=== PATIENT | female | born 1995 | race Caucasian/White ===

== ENCOUNTER 2021-07-19 09:27 | Outpatient (REF) | payer OTHER, SELFPAY ==
[2021-07-19 12:16] LABS: Binax Internal Control QC Valid; Binax Now Covid-19 Ag Negative (Negative)
== END 2021-07-19 09:28 | disposition home or self-care (01) ==
LOC: HO.LAB 09:27
PROVIDERS: Visit Provider Internal Medicine
DX: Z20.822 Contact with and (suspected) exposure to COVID-19 (principal)
CPT/HCPCS: 36415; C9803

== ENCOUNTER → 2024-08-24 15:14 | Outpatient (BNVA) | payer SELFPAY | PROVIDERS: Visit Provider Registered Nurse | DX: Z02.1 Encounter for pre-employment examination (principal) ==

== ENCOUNTER 2025-06-14 11:10 | Outpatient (AMB) | payer OTHER, SELFPAY ==
[2025-06-14 11:17] VITALS: BP 150/84; PULSE 76; O2SAT 99; BMI 32.7
--- NOTE | 2025-06-14 11:17 | HO.NEPHOV_ITS ---
Vital Signs 06/14/25 11:17 Height 4 ft 9 in Weight 151 lb BMI 32.7 BP 150/84 H Blood Pressure Location Lt brachial Position Sitting Pulse 76 Pulse Source Pulse Oximeter Pulse Oximetry (%) 99 Oxygen Delivery Method Room Air Intake Visit Reasons: ENP: Hypertension [employer] Pinner Required: No Accompanied by: Self / Same As Patient Allergies Iodinated Contrast Media Allergy (Unknown, Verified 06/14/25 11:20) Anaphylaxis Seasonal Allergies Allergy (Unknown, Verified 06/14/25 11:20) Runny Nose Medication List - Last Reconciled 06/14/25 by Harvey Bowman MD labetalol 100 mg PO BID HPI Comments Details: The patient is a 29 year old individual presenting for evaluation and management of chronic hypertension. The patient has a history of high blood pressure for approximately four to five years, starting around age 24. A past trial of amlodipine did not regulate the patient's blood pressure, and the patient is currently taking labetalol. The patient is currently 10 weeks . This is the patient's third ; the first ended in a miscarriage at age 27 due to Rh incompatibility, and the second resulted in a child who is now one year old. During the previous successful , the patient took labetalol and blood pressure was well-controlled, but it became elevated again after delivery. The patient reports a history of multiple painful kidney stones since the age of 8, all of which were passed without intervention. No work up was undertaken, The patient's mother also has a history of kidney stones. Associated symptoms include chronic nocturia, requiring urination three to four times nightly, and frequent headaches that resolve with coffee. The patient has a history of alternating constipation and diarrhea, for which a colonoscopy was normal with a suggestion of dairy intolerance. The patient denies smoking or alcohol use and reports being mindful of salt intake. Family history is positive for hypertension in both parents. [facility] Medical History (Updated 06/14/25 @ 11:32 by Harvey Bowman MD) Asthma Elevated blood pressure reading Bulimia nervosa, mild Depression Primary insomnia Elevated alkaline phosphatase level Chronic hypertension Family History (Updated 06/14/25 @ 11:19 by JENNIFER Perez) Father Hypertension Mother Hypertension Review of Systems Const Denies fever(s) and Denies weight loss Card Denies chest pain Resp Denies cough and Denies hemoptysis GI Denies abdominal pain, Denies diarrhea and Denies nausea Musc Denies back pain Neuro Denies focal weakness Physical Exam Vital Signs: Last Vital Signs Pulse 76 06/14/25 11:17 BP 150/84 H 06/14/25 11:17 Pulse Ox 99 06/14/25 11:17 Oxygen Delivery Method Room Air 06/14/25 11:17 BMI result Body Mass Index 32.7 Comfortable Short stature Neck supple no JVD. Lungs entry equal no rales. Heart S1-S2 heard no gallop or rub. Abdomen soft nontender. Neuro alert awake oriented. No asterixis. Extremities no edema. Results Reviewed Nephrology Results: Hgb, (12.0-16.0) 15.4 g/dL 06/24/19 WBC, (4.8-10.8) 11.3 X10*3/uL H 06/24/19 Plt Count, (160-400) 308 X10*3/uL 06/24/19 Sodium, (135-145) 139 MMOL/L 06/24/19 Potassium, (3.3-5.1) 4.2 MMOL/L 06/24/19 Chloride, (96-108) 105 MMOL/L 06/24/19 BUN, (9-16) 7 MG/DL L 06/24/19 Creatinine, (0.5-1.4) 0.64 MG/DL 06/24/19 Urine Protein, (NEG - TRACE) NEG 06/23/19 Assessment & Plan Assessment & Plan (1) HTN (hypertension): Code(s): I10 - Essential (primary) hypertension Category: Medical (2) Nephrolithiasis: Code(s): N20.0 - Calculus of kidney Category: Medical Plan 1. Hypertension - The patient has early-onset hypertension, currently uncontrolled, which requires further investigation for a secondary cause, especially given the history of recurrent kidney stones. - The current medication, labetalol, will be continued without changes at this time. - A 24-hour ambulatory blood pressure monitoring will be ordered to obtain a more accurate assessment of blood pressure control. - Adjustments to medication will be considered based on the results of the 24- hour monitoring. Will check Aldosterone and Renin - The patient was advised to continue a low-salt diet. - A follow-up is scheduled in one week to review test results. 2. Recurrent Nephrolithiasis - The patient has a long-standing history of recurrent kidney stones since childhood, which may be contributing to the hypertension. - A renal ultrasound will be performed to assess the kidneys. - A 24-hour urine collection will be done to analyze for sodium, calcium, citrate, and oxalic acid to investigate the etiology of stone formation. - The patient was advised to maintain adequate fluid intake. 3. - The patient is at 10 weeks of gestation, which necessitates prompt evaluation and management of hypertension to ensure maternal and well-being. - The diagnostic workup and medication adjustments will be expedited due to the . - The patient will continue labetalol, a medication considered safe during . Patient Instructions - Continue taking your current blood pressure medication, labetalol, as prescribed. - Continue to eat a diet with less salt. - Drink lots of fluids. - You will need to wear a blood pressure cuff for 24 hours. Just go about your normal day, and it will check your blood pressure automatically throughout the day and night. - 24 hr urine collection for stone studies - An ultrasound of your kidneys will be scheduled. - Please follow up in one week to review your test results. Orders: Orders US renal BI Today I10 - Essential (primary) hypertension, N20.0 - Calculus of kidney Calcium, 24 Hr Ur Today I10 - Essential (primary) hypertension, N20.0 - Calculus of kidney Citric Acid 24hr Urine Today I10 - Essential (primary) hypertension, N20.0 - Calculus of kidney UA and rflx microscopic Today I10 - Essential (primary) hypertension, N20.0 - Calculus of kidney Comprehensive Met. Panel Today I10 - Essential (primary) hypertension, N20.0 - Calculus of kidney AMB 24 HR B/P Monitor PLACEMENT Today I10 - Essential (primary) hypertension Sodium, 24Hr Urine Group Today I10 - Essential (primary) hypertension, N20.0 - Calculus of kidney Creatinine, 24 Hr Group Today I10 - Essential (primary) hypertension, N20.0 - Calculus of kidney Oxalate, 24 Hr Today I10 - Essential (primary) hypertension, N20.0 - Calculus of kidney Uric Acid, 24Hr Urine Group Today I10 - Essential (primary) hypertension, N20.0 - Calculus of kidney Aldosterone Today I10 - Essential (primary) hypertension, N20.0 - Calculus of kidney Renin Today I10 - Essential (primary) hypertension, N20.0 - Calculus of kidney Coding Level of Care Code New Pt Level 4 (72019) Diagnoses HTN (hypertension) I10 Nephrolithiasis N20.0
== END 2025-06-14 11:39 | disposition home or self-care (01) ==
LOC: HO.HKA 11:11
PROVIDERS: PCP Internal Medicine; Visit Provider Internal Medicine Hypertension Specialist
DX: I10 Essential (primary) hypertension (principal); N20.0 Calculus of kidney
CPT/HCPCS: 99204

== ENCOUNTER 2025-06-18 07:16 | Outpatient (REF) | payer OTHER, SELFPAY ==
--- OUTSIDE RECORDS SUMMARY | 2025-06-18 07:19 | XMS_ITS | Clinical Summary ---
Author Organization [facility] Address [address] [address] Phone Care Team Providers Care [employer] 8 Teacher Name Role Phone Clarissa Cordoba MD Primary Care Provider [phone] Allergies Active Allergy Reactions Criticality Noted Date Comments Iodinated Contrast Media Anaphylaxis High 01/27/2017 Hair dye Medications aspirin 81 MG EC tablet Take 162 mg by mouth. 4 Active sertraline (ZOLOFT) 50 MG tablet Take 50 mg by mouth. 5 Active labetaloL (TRANDATE) 100 MG tablet Take 100 mg by mouth 2 (two) times a day. 4 Active rho,D, immune globulin (HYPERRHO S/D) 1,500 unit (300 mcg) Syrg IM injection syringe Inject 1,500 Units into the muscle. 4 Active rho,D, immune globulin (RHOGAM) 1,500 unit (300 mcg) Syrg IM injection syringe Inject 1,500 Units into the muscle Once. - Intramuscular Active Active Problems No known active problems Immunizations Immunization Administration Dates Next Due DTP 05/13/1996,03/13/1996 DTaP 03/20/2001,04/12/1997,07/13/1996 UTnD-Ezx-ENU 04/12/1997, 6,05/13/1996,03/13 Dtap, 5 Pertussis Antigens 03/20/2001,04/12/1997 ,07/13/1996 HPV,quadrivalent 02/15/2009,06/22/2008, 8 Hepatitis A, ped/adol, 2 dose 09/07/2014, 011 Hepatitis B 04/26/2015, 7,02/11/1996,12/11 Hib,PRP-T 04/12/1997, 6,05/13/1996,03/13 INFLUENZA, SPLIT VIRUS, TRIV ALENT W/ PRESERVATIVE IM 04/01/2012 IPV 04/12/2001, 6,05/13/1996,03/13 Influenza Quadrivalent Prese rvative Free IM 03/13/2016,04/26/2015,08/04/2013 Influenza Quadrivalent w/ Pr eservative IM 09/07/2014 Influenza Split (Incl. Purif ied Surface Antigen) 02/27/2011,03/12/2010 MMR 02/27/2000,02/10/1997 Meningococcal MCV4P 03/13/2016,01/27/2008 Polio - OPV 07/13/1996,05/13/1996,03/13/1996 Td (adult) 5 Lf Tetanus Toxo id, PF, Adsorbed 08/23/2016 Td (adult),2 Lf Tetanus Toxo id, PF, Adsorbed 02/21/2021,08/23/2016 Tdap 01/27/2008 Varicella 01/27/2008,04/11/1999 Social History Tobacco Use Types Packs/Day Years Used Date Smoking Tobacco: Never Smokeless Tobacco: Never Tobacco Cessation:Counseling Given: Not Answered Education Answer Date Recorded Are you interested in more education? Not on mary e 02/24/2023 Are you concerned about learning? Not on file 02/24/2023 No 02/24/2023 No 02/24/2023 Digital Access Answer Date Recorded No 02/24/2023 No 02/24/2023 Reliable internet access at home? Not on file 02/24/2023 Device with a working camera? Not on file Comments Unknown Sex and Gender Information Value Date Recorded Sex Assigned at Not on file Legal Sex Female 8:02 AM EDT Gender Identity Not on file Sexual Orientation Not on file Last Filed Vital Signs Vital Sign Reading Time Taken Comments Blood Pressure 139/84 01/04/2025 9:25 AM EDT Pulse 78 01/04/2025 9:25 AM EDT Temperature 36.2 C (97.1 F) 01/04/2025 9:25 AM EDT Respiratory Rate 19 01/04/2025 9:25 AM EDT Oxygen Saturation 100% 01/04/2025 9:25 AM EDT Inhaled Oxygen Concentration - - Weight 65.8 kg (145 lb) 02/24/2023 8:13 AM EDT Height - - Body Mass Index - - Plan of Treatment Health Maintenance Due Date Last Done Comments DEPRESSION SCREENING 2007 HEPATITIS C SCREENING 12/06/2013 HIV ONE-TIME SCREENING (18-65 YEARS) 12/06/2013 INFLUENZA VACCINE (#1) 2025 6, 04/26/2015, 09/07/2014, Additional history exists COVID-19 VACCINE (2024- season) 2025 12/14/2020, 11/16/2020 PAP SMEAR 08/29/2026 08/29/2023 Adult Td,Tdap Booster 02/05/2034 02/06/2024 , 02/21/2021, 08/23/2016, Additional history exists HIB VACCINES Completed 04/12/1997, 03/16, 07/13/1996, Additional history exists HEPATITIS A VACCINES Completed 09/07/2014, 02/28/20 11 MENINGOCOCCAL VACCINES (ACWY) Aged Out 03/13/2016, 01/27/2008 No longer eligibl e based on patient's age to complete this topic SMOKING STATUS SCREENING (Once After 26 Yrs) Completed 12/14/2024 MENINGOCOCCAL VACCINES (B) Aged Out N o longer eligible based on patient's age to complete this topic PNEUMOCOCCAL VACCINES (0-49 years) Aged Out No longer eligible based on patient's age to complete this topic Medical Devices Not on file Insurance HMO O O O [facility] [place] [address] [place] [address] HMO Care Teams Grades 7 And 8 Teacher Relationship Specialty Start Date End Date Clarissa Cordoba MD [address] [place] [phone] PCP - General Internal Medicine 12/14/24 Additional Source Comments The information contained in this document represents components of the legal health record. It is not the complete legal health record.[facility]
--- OUTSIDE RECORDS SUMMARY | 2025-06-18 07:19 | XMS_ITS | Clinical Summary ---
Author Organization [facility] Address [address] [place] [address] Care Team Providers Care Machine Builder Name Role Phone Clarissa Cordoba MD Primary Care Provider [phone] Allergies Active Allergy Reactions Criticality Noted Date Comments Iodinated Contrast Media Anaphylaxis High 01/27/2017 Hair dye Other Runny nose 01/27/2017 Seasonal Allergies Medications albuterol HFA (PROAIR HFA ; PROVENTIL HFA ; VENTOLIN HFA) 90 mcg/actuation inhaler Inhale 2 Puffs into the lungs every 4 hours as needed for Cough or Wheezing. 3 Active fluticasone HFA (FLOVENT HFA) 110 mcg/actuation inhaler Inhale 1 Puff into the lungs 2 times daily. 3 Active NON FORMULARY PRENAT [id number]-[id number] FOL-FA OR Take by mouth daily. - Oral Active rho,D, immune globulin (WINRHO) 1,500 unit (300 mcg) syringe injection Inject 1,500 Units into the muscle Once. - Intramuscular Active labetaloL (NORMODYNE) 100 mg tablet Take 1 tablet (100 mg total) by mouth 2 (two) times a day. 60 each 5 5 04/14/20 26 Active vit,roshni 76/iron/folic (PNV 29-1 ORAL) Take 1 tablet by mouth 1 (one) time each day. Active Active Problems Problem Noted Date Diagnosed Date Environmental allergies 05/31/2024 Type O blood, Rh negative 05/31/2024 Encounter for supervision of normal first in third trimester 05/31/2024 Overview (05/31/2024): 1. [place] site: [address] 2. Delivery site: [facility] 3. Mobile Mommas: 4. Dating criteria: LMP only 5. Blood type: O- 6. Genetic screening: Low-risk male; [id number] neg 6. GBS: Date: 7. FOB name: Zachery 8. Plans A. Epidural or other pain management - B. Labor support identified - C. Tdap - Date:, Flu - Date: D. Breast or Bottle feed: E. Baby's name - F. Circumcision - 9. Hospital Course: Obesity affecting 10/09/2023 Overview (04/20/2024): BMI- 32.46 HgbA1C and 1 hour GTT at initial labs ASA 162mg at 12 weeks until delivery Detailed anatomy ultrasound Repeat GTT 24-28 weeks if early is normal BMI of 50 by 28wks transfer to [facility] [place] [place] DVT prophylaxis- Lovenox if CS and BMI >35 Chronic hypertension 09/10/2023 Overview (04/20/2024): Baseline (<20 weeks) CBC, AST, ALT, creatinine and P/C ratio - all WNL< tP:C 0.19 Start ASA 162mg at 12 weeks until delivery If no medication required, delivery 38-39 weeks Single growth u/s at 32 weeks Start meds for SBP>140 or DBP> 90 BP goal SBP: <140 and DBP: <90 If on medication or other comorbidities: Serial growth u/s at 28 weeks Weekly NST at 32 weeks Twice weekly testing at 36 weeks Deliver 37-39 weeks Chronic diarrhea 12/27/2020 Overview (04/20/2024): Normal CNSP 12/2020 biopsy pending Elevated alkaline phosphatase level 03/03/2020 Overview (04/20/2024): Normal abdominal ultrasound Primary insomnia 08/26/2018 Depression 10/24/2017 Bulimia nervosa, mild (CMS/HCC V28) 09/03/2017 Overview (04/20/2024): Referred to nutrition and behavioral health Elevated blood pressure reading 09/03/2017 Overview (04/20/2024): Last Assessment & Plan: Patient instructed to f/u with PCP, referral placed. Asthma 01/20/2017 Estimated Date of Delivery Comme nts Yes 01/14/2026 Encounters Date Type Department Care Team Description 05/26/2025 10:00 AM EST Clinical Support Obstetrics and Gynecology [address] [phone] Missed menses (Primary Dx) from Last 3 Months Immunizations Immunization Administration Dates Next Due DTP 05/13/1996,03/13/1996 DTaP (Infanrix) 6wks to less than 7yo 03/20/2001 ,04/12/1997,07/13/1996 DTaP 5 pertussis antigens, D iptheria Tetanus acellular pertussis (Daptacel) 6wks to less than 7yo 03/20/2001,04/12/1997,07/13/1996 [id number]-DIE (Pentacel) 2mo to less than 5yo 04/12/1997,07/13/1996,05/13/1996,03/13 HPV, Quadrivalent 02/15/2009,06/22/2008,01/27/20 08 Hepatitis A Pediatric (Havri x; Vaqta) 12mo to less than 19yo 09/07/2014,02/27/2011 Hepatitis B Pediatric (Enger ix B; Recombivax HB) to less than 20 yo 04/26/2015,02/10/1997,02/11/1996,12/11 HiB PRP-T conjugate (Acthib, Hiberix) 6wks and older 04/12/1997,07/13/1996,05/13/1996,03/13 IPV Inactivated polio (Ipol) 6wks and older 04/12/2001,07/13/1996,05/13/1996,03/13 Influenza Quadrivalent, 0.5m l, preservative free (Fluarix; FluLaval; Fluzone) ages 6mo and older (Afluria) 3yo and older 03/13/2016,04/26/2015,08/04/2013 Influenza Quadrivalent, with preservative (Fluzone; Afluria) 6mo and older 09/07/2014 Influenza Split 02/27/2011,03/12/2010 Influenza trivalent, with pr eservative (Fluzone; Afluria) 6mo and older 04/01/2012,02/27/2011,03/12/2010 MMR, measles mumps and rubel la Live (Priorix; M-M-R II) 12mo and older 02/27/2000,02/10/1997 Meningococcal MCV4P 03/13/2016,01/27/2008 OPV 07/13/1996,05/13/1996,03/13/1996 Td Tetanus diptheria (Tdvax) 7yo and older 02/21/2021,08/23/2016 Td Tetanus diptheria, preser vative free (Tenivac) 7yo and older 08/23/2016 Tdap Tetanus diptheria acell ular pertussis (Boostrix; Adacel) 7yo and older 02/06/2024,01/27/2008 Varicella live (Varivax) 12m o and older 04/14/2024,01/27/2008,04/11/1999 Surgical History Surgery Date Site/Laterality Comments COLONOSCOPY 12/26/2020 PROCEDURE: HISTORICAL COLONOSCOPY; COMMENT: Dr. Kwan francois. Random colonic biopsies also normal. WISDOM TOOTH EXTRACTION PROCEDURE: HISTORICAL WISDOM TEETH EXTRACTION Medical History Medical History Date Comments Asthma 01/20/2017 DX:Asthma Environmental allergies 01/20/2017 DX:Envir onmental allergies Bulimia nervosa, mild (CMS/[facility] V28) 09/03/2017 DX:Bulimia nervosa, mild Primary insomnia 08/26/2018 DX:Primary inso mnia Chronic hypertension DX:Chronic hypertension Kidney stones DX:Kidney stones Family History Medical History Relation Name Comments Breast cancer Aunt Paternal and bone cance r; maternal ADD / ADHD Father Hypertension Father Nephrolithiasis Maternal Grandfather Other: gout Maternal Grandfather Other: heart disease Maternal Grandmother Stroke Maternal Grandmother Hypertension Mother Ulcerative colitis Mother Breast cancer Mother's side 1 Cousin Multiple myeloma Mother's side 2 Great aunt Other: heart disease Paternal Grandfather Heart attack Paternal Grandmother Hyperlipidemia Paternal Grandmother Hypertension Paternal Grandmother Other: heart disease Paternal Grandmother Asthma Sister Colon cancer Neg Hx Ovarian cancer Neg Hx Pancreatic cancer Neg Hx Prostate cancer Neg Hx Uterine cancer Neg Hx Relation Name Status Comments Aunt Paternal Father Alive Maternal Grandfather Alive Maternal Grandmother Mother Alive Mother's side 1 Cousin Alive Mother's side 2 Great aunt Alive Paternal Grandfather Alive Paternal Grandmother Alive Sister Alive Social History Tobacco Use Types Packs/Day Years Used Date Smoking Tobacco: Never Smokeless Tobacco: Never Tobacco Cessation:Counseling Given: Not Answered Alcohol Use Standard Drinks/Week Comments Not Currently 0 (1 standard drink = 0.6 oz pur e alcohol) Estimated Date of Delivery Comme nts Yes 01/14/2026 Sex and Gender Information Value Date Recorded Sex Assigned at Not on file Legal Sex Female 5:06 PM EST Gender Identity Not on file Sexual Orientation Not on file Obstetrics History * This document contains information received from the source organization and may not represent a complete record from that organization. Para Term AB IAB SAB Ectopic Multiple Livin g Live Births 3 1 1 0 0 0 1 1 Date Outcome GA Total Labor Labor/2nd/3rd Weight Sex Type Anes PTL Teena A1 A5 Name Clin 2022 2023 Term 37w 4d M Vag-S pont Living Current Last Filed Vital Signs Vital Sign Reading Time Taken Comments Blood Pressure 130/95 05/26/2025 10:05 AM EST Pulse 91 02/15/2025 12:59 PM EDT Temperature 36.7 C (98 F) 02/15/2025 12:59 PM EDT Respiratory Rate 14 07/13/2024 10:32 AM EST Oxygen Saturation 98% 02/15/2025 12:59 PM EDT Inhaled Oxygen Concentration - - Weight 68.9 kg (152 lb) 05/26/2025 10:05 AM EST Height 144.8 cm (4' 9 ) 05/26/2025 10:05 AM EST Body Mass Index 32.89 05/26/2025 10:05 AM EST Plan of Treatment Upcoming Encounters Date Type Department Care Team (Late st Contact Info) Description 06/22/2025 2:00 PM EST Office Visit Internal Medicine - [address] [place], [place] [phone] Clarissa Cordoba MD [address] [place], [place] 06/23/2025 10:00 AM EST Clinical Support Obstetrics and Gynecology - [address] [phone] 07/06/2025 10:30 AM EST Initial Obstetrics and Gynecology - [address] [phone] Amol Hawkins, [facility] [address] [place] [address] Health Maintenance Due Date Last Done Comments Pneumococcal Vaccine: Pediatrics (0 to 5 Years) and At-Risk Patients (6 to 49 Years) (1 of 2 - PCV) 12/06/2014 Social Influencers of Health Screening 06/22/2022 COVID-19 Vaccine (3 - season) 2025 12/14/2020, 11/16/2020 Influenza Vaccine (#1) 2025 6, 04/26/2015, 09/07/2014, Additional history exists Hypertension/CHF/CAD Annual BMP Blood Test 01/19/2026 01/19/2025, 02/06/2024, 02/06/2024 Cervical Cancer Screening: Pap Smear 08/29/2026 08/29/2023, 08/29/2023, 08/29/2023, Additional history exists Cholesterol Screening (Lipid Panel) 01/19/2030 01/19/2025, 02/06/2024, 02/06/2024 DTaP,Tdap,and Td Vaccines (11 - Td or Tdap) 02/05/2034 02/06/2024, 02/21/2021, 08/23/2016, Additional history exists HIB Vaccines Completed 04/12/1997, 03/16, 07/13/1996, Additional history exists IPV Vaccines Completed 04/12/2001, 03/16, 07/13/1996, Additional history exists HPV Vaccines Completed 02/15/2009, 06/13, 01/27/2008 Hepatitis A Vaccines Completed 09/07/2014, 02/28/20 11 Hepatitis B Vaccines Completed 04/26/2015, 02/10/1997, 02/11/1996, Additional history exists Meningococcal ACWY Vaccine Aged Out 03/13/2016, No longer eligible based on patient's age to complete this topic HIV Screening Completed 10/10/2023 Hepatitis C Screening Completed 10/10/2023 Depression Screening Completed 01/17/2025 Meningococcal B Vaccine Aged Out No l onger eligible based on patient's age to complete this topic RSV Immunization Adult Patients (No Doses Required) Completed RSV Immunization Patients Under 20 months Aged Out No longer eligible based on patient's age to complete this topic Procedures Procedure Name Priority Date/Time Associated Diagnosis Comments POC , URINE DIAGNOSTIC Routine 05/26/2025 10:31 AM EST Missed menses COMPREHENSIVE METABOLIC PANEL Routine 01/19/2025 9:25 AM EDT Obesity (BMI 30.0-34.9) Hypertension, uncontrolled LIPID PANEL WITH REFLEX TO DIRECT LDL Routine 01/19/2025 9:25 AM EDT Obesity (BMI 30.0-34.9) Hypertension, uncontrolled HEPATITIS C SCREENING Routine 10/10/2023 HIV SCREENING Routine 10/10/2023 PAP SMEAR Routine 08/29/2023 from Last 3 Months or Most Recently Relevant to Health Maintenance Results * (ABNORMAL) POC , urine manually resulted (05/26/2025 10:31 AM EST) HCG, Ur POC Positive(A ) Negative POC hCG Int QC Pass? Yes(A) Yes Urine Urine specimen obtained by clean catch procedure / Unknown 05/26/2025 10:31 AM EST Reyna SILVESTRE POINT OF CARE TEST ENTER/EDIT O RDERABLES Final Result * Lipid panel with reflex to direct LDL (01/19/2025 9:25 AM EDT) Cholesterol 154 0 - 200 mg/dL LAB CHEMISTRY METHOD 01/19/2025 1:14 PM EDT [facility] Triglycerides 147 0 - 150 mg/dL LAB CHEMISTRY METHOD 01/19/2025 1:14 PM EDT [facility] HDL 44 >=40 mg/dL LAB CHEMISTRY METHOD 01/19/2025 1:14 PM EDT [facility] LDL Calculated 81 0 - 100 mg/dL LAB CHEMISTRY METHOD 01/19/2025 1:14 PM EDT [facility] VLDL Cholesterol Roshni 29.4 mg/dL LAB CHEMISTRY METHOD 01/19/2025 1:14 PM EDT [facility] Non HDL Chol. (LDL+VLDL) 110 <145 mg/dL LAB CHEMISTRY METHOD 01/19/2025 1:14 PM EDT [facility] Chol/HDL Ratio 3.5 0.0 - 4.4 LAB CHEMISTRY METHOD 01/19/2025 1:14 PM EDT [facility] Blood Venous blood specimen / Unknown Venipuncture / Unknown 01/19/2025 9:25 AM EDT 01/19/2025 9:25 AM EDT us Clarissa Cordoba MD LAB BLOOD ORDERABLES Final Res ult [facility] [address] [place] [address], [place] [phone] * (ABNORMAL) Comprehensive metabolic panel (01/19/2025 9:25 AM EDT) Sodium 139 133 - 145 mmol/L LAB CHEMISTRY METHOD 01/19/2025 1:14 PM EDT [facility] Potassium 4.0 3.5 - 5.5 mmol/L LAB CHEMISTRY METHOD 01/19/2025 1:14 PM [facility] Chloride 106 96 - 110 mmol/L LAB CHEMISTRY METHOD 01/19/2025 1:14 PM [facility] CO2 26 21 - 32 mmol/L LAB CHEMISTRY METHOD 01/19/2025 1:14 PM [facility] Anion Gap 7 3 - 11 LAB CHEMISTRY METHOD 01/19/2025 1:14 PM [facility] Glucose 86 70 - 100 mg/dL LAB CHEMISTRY METHOD 01/19/2025 1:14 PM [facility] BUN 9 5 - 25 mg/dL LAB CHEMISTRY METHOD 01/19/2025 1:14 PM [facility] Creatinine 0.63 0.50 - 1.10 mg/dL LAB CHEMISTRY METHOD 01/19/2025 1:14 PM [facility] eGFR 123 >=60 mL/min/1. 73m2 LAB CHEMISTRY METHOD 01/19/2025 1:14 PM [facility] Comment:Calculation based on the Chronic Kidney Disease Epidemiology Collaboration (CKD-EPI) equation refit without adjustment for race. BUN/Creatinine Ratio 14.3 LAB CHEMISTRY METHOD 01/19/2025 1:14 PM [facility] Calcium 9.0 8.5 - 10.5 mg/dL LAB CHEMISTRY METHOD 01/19/2025 1:14 PM [facility] AST (SGOT) 13 10 - 42 unit/L LAB CHEMISTRY METHOD 01/19/2025 1:14 PM [facility] ALT (SGPT) 25 10 - 60 unit/L LAB CHEMISTRY METHOD 01/19/2025 1:14 PM [facility] Alkaline Phosphatase 144(H) 42 - 121 unit/L LAB CHEMISTRY METHOD 01/19/2025 1:14 PM [facility] Total Protein 7.2 6.0 - 8.0 g/dL LAB CHEMISTRY METHOD 01/19/2025 1:14 PM EDT [facility] Albumin 4.1 3.2 - 5.0 g/dL LAB CHEMISTRY METHOD 01/19/2025 1:14 PM EDT [facility] Total Bilirubin 0.4 0.0 - 1.4 mg/dL LAB CHEMISTRY METHOD 01/19/2025 1:14 PM EDT [facility] Blood Venous blood specimen / Unknown Venipuncture / Unknown 01/19/2025 9:25 AM EDT 01/19/2025 9:25 AM EDT Clarissa Cordoba MD LAB BLOOD ORDERABLES Final Res ult [facility] [address] [place] [address], * HIV Screening (10/10/2023) HIV Screening Abstracted Historical Provider HEALTH MAINTENANCE Final Result * Hepatitis C Screening (10/10/2023) Hepatitis C Screening Abstracted Historical Provider HEALTH MAINTENANCE Final Result * Pap smear (08/29/2023) 08/29/2023 Narrative HISTORICAL TESTING LAB RESULTING AGENCY - 09/08/2023 6:36 AM EST [id number] THINPREP PAP, IMAGED: NEGATIVE FOR SQUAMOUS INTRAEPITHELIAL LESION AND MALIGNANCY . JENNIFFER AMOR(ASCP) (CASE ELECTRONICALLY SIGNED 09 07 2023) ADEQUACY: SATISFACTORY ENDOCERVICAL/TRANSFORMATION ZONE COMPONENT PRESENT. SOURCE: THINPREP PAP HPV IF ASCUS, CERVICAL, IMAGED CLINICAL INFORMATION: HPV IF DIAGNOSIS OF ASCUS. HORMONES, PAP HX NEGATIVE, LMP 07/29/23, [Z12.4] us Keyur Bergman CNM LAB CYTOLOGY ORDERABLES Final Result HISTORICAL TESTING LAB RESULTING AGENCY from Last 3 Months or Most Recently Relevant to Health Maintenance Insurance [facility] Care Teams Machine Builder Relationship Specialty Start Date End Date Clarissa Cordoba MD [address] [place] [phone] PCP - General Internal Medicine 11/08/24
[2025-06-18 09:15] LABS: Creatinine, mg/dL 85.41; Sodium, 24 Hr Urine 83.0 mmol/L
[2025-06-18 09:16] LABS: Creatinine, mg/dL 86.36
[2025-06-18 09:23] LABS: Creatinine, mg/dL 85.84; Uric Acid, mg/dL 44.6 mg/dL
[2025-06-18 09:28] LABS: Total Volume 24 Hour Urine 1500 mL
[2025-06-18 09:29] LABS: Total Volume 24 Hour Urine 1500 mL
[2025-06-18 10:11] LABS: Alanine Aminotransferase 17 U/L (0-31); Albumin Level 4.6 g/dL (3.5-5.0); Alkaline Phosphatase 92 U/L (39-117); Anion Gap 12 (12-20); Aspartate Amino Transferase 22 U/L (5-31); Blood Urea Nitrogen 9 mg/dL (9-16); Calcium 9.2 mg/dL (8.4-10.2); Carbon Dioxide 24 mmol/L (22-29); Chloride 107 mmol/L (96-108); Estimated Glomerular Filt Rate > 60; Potassium 3.6 mmol/L (3.3-5.1); Sodium 139 mmol/L (135-145); Total Protein 7.3 g/dL (6.5-8.0)
[2025-06-18 10:29] LABS: Appearance Urine Cloudy; Glucose Urine UA Negative (Negative); PH 6.5 (5.0-9.0); Specific Gravity - Urine >= 1.030 (1.005-1.025); UMIC TRIGGER UA YES
[2025-06-18 14:38] LABS: Total Volume 24 Hour Urine 1500 mL
[2025-06-20 16:24] LABS: Calcium/Creatinine Ratio 159 mg/g creat (30-275); Creatinine 24Hr Urine 1.25 g/24 h (0.50-2.15)
== END 2025-06-18 07:17 | disposition home or self-care (01) ==
LOC: HO.LAB 07:16
PROVIDERS: Visit Provider Internal Medicine Hypertension Specialist
DX: N20.0 Calculus of kidney (principal); I10 Essential (primary) hypertension
CPT/HCPCS: 36415; 80053; 81001; 82088; 82340; 82507; 82570; 83945; 84244; 84300; 84560

== ENCOUNTER 2025-06-21 15:41 | Outpatient (AMB) | payer OTHER, SELFPAY ==
--- NOTE | 2025-06-21 15:45 | HO.NEPHOV ---
Vital Signs 06/21/25 15:46 Height 4 ft 9 in BP 152/98 H Blood Pressure Location Rt brachial Position Sitting Intake Visit Reasons: 2wk f/u w/labs Allergies Iodinated Contrast Media Allergy (Unknown, Verified 06/14/25 11:20) Anaphylaxis Seasonal Allergies Allergy (Unknown, Verified 06/14/25 11:20) Runny Nose Medication List - Last Reconciled 06/21/25 by Harvey Bowman MD labetalol 100 mg PO BID HPI Comments Details: History of Present Illness The patient is a 29 year old female presenting for follow-up and management of hypertension. She recently completed urine and blood tests on the , with some results pending. The patient monitors her blood pressure at home and takes medication in the morning between 6:00 and 7:00 AM and at night between 8:00 and 9:00 PM. Her home blood pressure log shows occasional spikes in the evening between 4:00 and 6:00 PM, with readings as high as 164-173 mmHg, and also in the industrial machine system technician before waking. She reports her diet is not high in salt. [facility] Medical History (Updated 06/14/25 @ 11:32 by Harvey Bowman MD) Asthma Elevated blood pressure reading Bulimia nervosa, mild Depression Primary insomnia Elevated alkaline phosphatase level Chronic hypertension Family History Father Hypertension Mother Hypertension Physical Exam Exam Exam: Physical Exam General: Awake. Comfortable. HENT: Neck supple. Mucosa moist. Pulmonary: Lungs aeration equal. No rales. Cardiology: Heart S1-S2 heard. No gallop. Blood pressure was high today at 150 something, with spikes up to 164, 173. 24-hour average is 130/80. Abdomen: Soft. Non tender. Bowel sounds normal. Neurologic: No involuntary movements. No myoclonus. Extremities: No edema. No rash. Vital Signs: Last Vital Signs BP 152/98 H 06/21/25 15:46 Office Procedures 24 B/P Monitor Interpretation Details: Daytime 132/81 Night time 119/77 24 hr Average: 130/80 CPT: 87832 24 Hour Blood Pressure Monitor Reading Procedure code (CPT) selection complete Results Reviewed Nephrology Results: Hgb, (12.0-16.0) 15.4 g/dL 06/24/19 WBC, (4.8-10.8) 11.3 X10*3/uL H 06/24/19 Plt Count, (160-400) 308 X10*3/uL 06/24/19 Sodium, (135-145) 139 mmol/L 06/18/25 Potassium, (3.3-5.1) 3.6 mmol/L 06/18/25 Chloride, (96-108) 107 mmol/L 06/18/25 Carbon Dioxide, (22-29) 24 mmol/L 06/18/25 BUN, (9-16) 9 mg/dL 06/18/25 Creatinine, (0.5-1.4) 0.57 mg/dL 06/18/25 Calcium, (8.4-10.2) 9.2 mg/dL 06/18/25 Urine Protein, (Neg-Trace) 30 (1+) mg/dL H 06/18/25 Assessment & Plan Assessment & Plan (1) HTN (hypertension): Code(s): I10 - Essential (primary) hypertension Category: Medical (2) Nephrolithiasis: Code(s): N20.0 - Calculus of kidney Category: Medical Plan Plan 1. Hypertension - A review of the patient's home blood pressure monitoring log shows a 24-hour average of 130/80 mmHg, - The average awake blood pressure is 132/81 mmHg, with appropriate nocturnal dipping. - Concern remains for occasional significant blood pressure spikes in the evening and industrial machine system technician, with readings reaching as high as 173 mmHg. Increase labetalol to 200 mg in the morning and keep a 200 mg q.p.m. Encouraged to monitor blood pressure at home - Recent blood and urine test results that have been received are normal, though some results are still pending. - The plan is to await the pending lab results 2. Recurrent Nephrolithiasis - The patient has a long-standing history of recurrent kidney stones since childhood, which may be contributing to the hypertension. - A renal ultrasound will be performed to assess the kidneys. - A 24-hour urine collection will be done to analyze for sodium, calcium, citrate, and oxalic acid to investigate the etiology of stone formation. - The patient was advised to maintain adequate fluid intake. 3. - The patient is at 12 weeks of gestation, which necessitates prompt evaluation and management of hypertension to ensure maternal and well-being. - The diagnostic workup and medication adjustments will be expedited due to the . - The patient will continue labetalol, a medication considered safe during . Orders: Orders AMB 24 HR B/P Monitor INTERPRETATION Today I10 - Essential (primary) hypertension Medications: Changed From labetalol 100 mg PO BID To labetalol TWO tabs in Morning and 1 tab in evening 100 mg PO BID 120 tabs 1RF Coding Level of Care Code Est Pt Level 3 (96210) Diagnoses HTN (hypertension) I10 Nephrolithiasis N20.0 CPT Codes - CPT: 93999 24 Hour Blood Pressure Monitor Reading ([id number])
[2025-06-21 15:46] VITALS: BP 152/98
--- OUTSIDE RECORDS SUMMARY | 2025-06-21 22:25 | XMS_ITS | Clinical Summary ---
Author Organization [facility] Address [address] [address] Phone Care Team Providers Care Newspaper Or Periodical Editor Name Role Phone Clarissa Cordoba MD Primary Care Provider [phone] Allergies Active Allergy Reactions Criticality Noted Date [...] Dates Next Due DTP 05/13/1996,03/13/1996 DTaP 03/20/2001,04/12/1997,07/13/1996 DIsR-[id number] 04/12/1997, 6,05/13/1996,03/13 Dtap, 5 Pertussis Antigens 03/20/2001,04/12/1997 [...] on file Insurance HMO [facility] [place] [address] [place] [address] HMO Care Teams Newspaper Or Periodical Editor Relationship Specialty Start Date End Date Clarissa Cordoba MD [address] [place] [phone] PCP - General Internal Medicine 12/14/24 Additional Source Comments The information contained in this document represents components of the legal health record. It is not the complete legal health record.[facility]
== END 2025-06-21 16:02 | disposition home or self-care (01) ==
LOC: HO.HKA 15:41
PROVIDERS: PCP Internal Medicine; Visit Provider Internal Medicine Hypertension Specialist
DX: I10 Essential (primary) hypertension (principal); N20.0 Calculus of kidney
CPT/HCPCS: 93790; 99213

== ENCOUNTER → 2025-06-21 15:41 | Outpatient (BNVA) | payer OTHER, SELFPAY | PROVIDERS: PCP Internal Medicine; Visit Provider Internal Medicine Hypertension Specialist | DX: O16.1 Unspecified maternal hypertension, first trimester (principal); O26.831 Pregnancy related renal disease, first trimester; N20.0 Calculus of kidney; Z87.442 Personal history of urinary calculi; Z3A.12 12 weeks gestation of pregnancy | CPT/HCPCS: 93786; 93788 ==